=== PATIENT | female | born 1990 | race African-American/Black ===

== ENCOUNTER 2021-08-04 17:48 | Emergency (ER) | payer MEDICAID ==
[~2021-08-04] VITALS: Ht 162.6 cm; Wt 73.0 kg
[2021-08-04 20:30] VITALS: BP 129/66
== END 2021-08-04 21:16 | disposition home or self-care (01) ==
LOC: ER 17:48
DX: S61.412A Laceration without foreign body of left hand, initial encounter (principal); I10 Essential (primary) hypertension; W45.8XXA Other foreign body or object entering through skin, initial encounter; Y93.89 Activity, other specified; Y92.89 Other specified places as the place of occurrence of the external cause; Y99.8 Other external cause status
CPT/HCPCS: 12002; 99282

== ENCOUNTER 2021-08-07 02:00 | Emergency (ER) | payer MEDICAID ==
[~2021-08-07] VITALS: Ht 157.5 cm; Wt 73.0 kg
[2021-08-07] MEDS ORDERED: BACITRACIN ZINC OINT UDPKT TOP ONE (04:00)
[2021-08-07] MEDS ORDERED: LIDOCAINE HCL/PF 1% 10 MG/ML 5ML VIAL INFIL ONE (04:00)
[2021-08-07] MEDS ORDERED: CEPH500T PO (05:07)
[2021-08-07] MEDS ORDERED: ACET-2708 PO (05:07)
[2021-08-07 05:20] VITALS: BP 119/81
[2021-08-07] MEDS: CEPHALEXIN 250MG CAPSULE PO SCH ×2 (05:30→05:40)
== END 2021-08-07 05:41 | disposition home or self-care (01) ==
LOC: ER 02:00
DX: S61.412A Laceration without foreign body of left hand, initial encounter (principal); I10 Essential (primary) hypertension; X58.XXXA Exposure to other specified factors, initial encounter; Y93.89 Activity, other specified; Y92.89 Other specified places as the place of occurrence of the external cause; Y99.8 Other external cause status
CPT/HCPCS: 12002; 99283; A4217; J3490

== ENCOUNTER 2021-08-12 02:51 | Emergency (ER) | payer MEDICAID, OTHER ==
[~2021-08-12] VITALS: Ht 162.6 cm; Wt 71.0 kg
[~2021-08-12 02:51] MED LIST: ACET-2708 PO; CEPH500T PO
[2021-08-12 03:07] VITALS: BP 146/96
[2021-08-12] MEDS ORDERED: BACITRACIN ZINC OINT UDPKT TOP ONE (04:15)
== END 2021-08-12 05:09 | disposition home or self-care (01) ==
LOC: ER 02:51
DX: Z48.00 Encounter for change or removal of nonsurgical wound dressing (principal)
CPT/HCPCS: 99285; Z7610

== ENCOUNTER 2021-08-20 03:14 | Emergency (ER) | payer MEDICAID, OTHER ==
[~2021-08-20] VITALS: Ht 160 cm; Wt 71.0 kg
[2021-08-20 04:05] VITALS: BP 140/97
== END 2021-08-20 04:40 | disposition home or self-care (01) ==
LOC: ER 03:14
DX: Z48.02 Encounter for removal of sutures (principal)
CPT/HCPCS: 99281

== ENCOUNTER 2022-01-16 19:43 | Emergency (ER) | payer MEDICAID, OTHER ==
[~2022-01-16] VITALS: Ht 160 cm; Wt 69.5 kg
[2022-01-16 22:38] LABS: CLARITY URINE CLEAR (CLEAR); COLOR URINE YELLOW (YELLOW); KETONES URINE TRACE (NEGATIVE); LEUKOCYTE ESTERASE URINE NEGATIVE (NEGATIVE); NITRITE URINE NEGATIVE (NEGATIVE); OCCULT BLOOD URINE 2+ (NEGATIVE); PROTEIN URINE 1+ (NEGATIVE); SPECIFIC GRAVITY URINE 1.022 (1.005-1.030)
[2022-01-16 23:35] LABS: BASOPHILS % 1.2 % (0.0-2.0); EOSINOPHILS % 1.6 % (0.0-5.0); HEMATOCRIT. 36.9 % (36.0-48.0); HEMOGLOBIN. 11.7 g/dL (12.0-16.0); MEAN CORPUSCULAR HEMOGLOBIN 24.6 pg (28.0-32.0); MEAN CORPUSCULAR VOLUME 77.4 fL (81.0-99.0); MEAN PLATELET VOLUME 8.3 fl (7.4-10.4); MONOCYTES % 4.5 % (2.0-8.0); NEUTROPHILS % 41.7 % (40.0-76.0); PLATELET 294 x1000/uL (130-400); RED BLOOD CELL COUNT 4.77 mill/uL (4.2-5.4); RED CELL DISTRIBUTION WIDTH 20.9 % (11.6-14.6)
[2022-01-17] MEDS ORDERED: DOXY100C5 MT (01:37)
[2022-01-17] MEDS ORDERED: CEFTRIAXONE SODIUM 500 MG/VIAL IM ONE (01:45)
[2022-01-17] MEDS ORDERED: DOXYCYCLINE HYCLATE 100MG CAPSULE PO ONE (01:45)
[2022-01-17 01:54] VITALS: BP 140/77
== END 2022-01-17 02:00 | disposition home or self-care (01) ==
LOC: ER 20:29
DX: N93.8 Other specified abnormal uterine and vaginal bleeding (principal); I10 Essential (primary) hypertension
CPT/HCPCS: 36415; 81003; 81025; 85025; 87210; 87491; 87591; 96372; 99283; J0696